=== PATIENT | female | born 1940 | race Caucasian/White ===

== ENCOUNTER 2017-01-22 06:10 | Emergency (ER) | payer OTHER ==
--- NOTE | 2017-01-22 06:36 | PROVIDER DOCUMENTATION ---
HPI-Syncope/Dizziness - General Chief Complaint: Syncope Stated Complaint: fall, neck pain, right hip pain, arm pain Time Seen by Provider: 01/22/17 06:28 Source: patient, family Allergies/Adverse Reactions: Patient Allergies Allergy/AdvReac Type Severity Reaction Status Date / Time ceftazidime pentahydrate * AdvReac DIZZINESS Verified 01/22/17 06:31 [From Tazidime] tramadol AdvReac DIZZINESS Verified 01/22/17 06:31 trazodone AdvReac DIZZINESS Verified 01/22/17 06:31 Home Medications: Home Medication List Medication Instructions Recorded Confirmed Last Taken Type Levothyroxine [Synthroid] 88 mcg PO DAILY 02/04/15 01/22/17 01/21/17 History Albuterol Sulfate [Proair Hfa] 1 puff IH Q6H PRN PRN 12/22/16 01/22/17 12/19/16 21:00 History Cholecalciferol (Vit D3) [Vitamin 5,000 unit PO DAILY 12/22/16 01/22/17 History D] Cyanocobalamin (Vitamin B-12) 1,000 mcg PO DAILY 12/22/16 01/22/17 01/21/17 History [Vitamin B-12] Duloxetine [Cymbalta] 60 mg PO DAILY 12/22/16 01/22/17 01/21/17 History Furosemide [Lasix] 20 mg PO EVERY OTHER DAY 12/22/16 01/22/17 01/21/17 History Gabapentin 300 mg PO HS 12/22/16 01/22/17 01/21/17 History Hydrochlorothiazide 12.5 mg PO DAILY 12/22/16 01/22/17 01/21/17 History LISINOpril [Prinivil] 20 mg PO DAILY 12/22/16 01/22/17 01/21/17 History Magnesium Oxide 400 mg PO DAILY 12/22/16 01/22/17 01/21/17 History Mometasone Nasal Colp [Nasonex 1 spray JOSE M DAILY 12/22/16 01/22/17 01/21/17 History Nasal Colp] Omeprazole [Prilosec] 40 mg PO DAILY 12/22/16 01/22/17 01/21/17 History Orphenadrine [Norflex] 100 mg PO BID 12/22/16 01/22/17 01/21/17 History Polyethylene Glycol 3350 [Clearlax] 17 gm PO DAILY 12/22/16 01/22/17 01/21/17 History Potassium Chloride 20 meq PO DAILY 12/22/16 01/22/17 01/21/17 History Pramipexole [Mirapex] 0.25 mg PO HS 12/22/16 01/22/17 01/21/17 History Simvastatin [Zocor] 20 mg PO DAILY 12/22/16 01/22/17 01/21/17 History Acetaminophen [Tylenol] 1,000 mg PO Q6H #0 tablet 12/29/16 01/22/17 Unknown Rx Celecoxib [Celebrex] 200 mg PO BID #60 capsule 12/29/16 01/22/17 01/21/17 Rx Docusate Sodium [Colace] 100 mg PO BID #0 capsule 12/29/16 01/22/17 01/21/17 Rx Magnesium Hydroxide [Milk of 30 ml PO Q6H PRN PRN #0 udc 12/29/16 01/22/17 Unknown Rx Magnesia] Pregabalin [Lyrica] 75 mg PO BID #60 capsule 12/29/16 01/22/17 01/21/17 Rx Rivaroxaban [Xarelto] 10 mg PO DAILY@0600 #30 tablet 12/29/16 01/22/17 01/21/17 Rx Folic Acid 0.4 mg PO DAILY 01/22/17 01/22/17 01/21/17 History Furosemide [Lasix] 40 mg .SEE ORDER DAILY #14 vial 01/22/17 Unknown Rx Hydrocodone Bit/Acetaminophen 1 each PO HS 01/22/17 01/22/17 01/21/17 History [Hydrocodon-Acetaminophen 5-325] Iron Carbonyl/Ascorbic Acid 1 each PO DAILY 01/22/17 01/22/17 01/21/17 History [Icar-C] Melatonin/Pyridoxine [Melatonin 3 1 each PO HS 01/22/17 01/22/17 01/21/17 History mg Tablet] Sodium Polystyrene [Sps] 30 gm MD 3-4XDAY PRN PRN #40 enema 01/22/17 Unknown Rx - History of Present Illness-Syncope/Dizzy Nature of Presenting Problem: Pt is in rehab and had a fall. There was no loss of consciousness, but she feels dizzy-headed but is unable to articulate if this is vertigo or light- headedness. She has a vague chest wall muscle pain and right elbow pain where whe sustained an abrasion, vague neck muscle ache, but FROM and her usual right him discomfort from where she recently had a hip operation. Recently she has been haveing more trouble in rehab Review of Systems - Adult - REVIEW OF SYSTEMS - ADULT Constitutional: denies: chills, fever Eyes: denies: discharge, blurred vision Ears, Nose, Mouth & Throat: denies: ear pain, sinus problem, throat pain Cardiovascular: denies: chest pain, heart murmur Respiratory: denies: chronic cough, shortness of breath Gastrointestinal: denies: abdominal pain, difficulty swallowing Genitourinary: denies: frequency, hematuria Musculoskeletal: denies: bone pain, joint pain, neck pain Integumentary: denies: hives, itching, skin thickening Neurological: denies: dizziness/vertigo, numbness, tremors Psychiatric: reports: no symptoms reported Endocrine: denies: goiter, cold intolerance, heat intolerance Hematologic/Lymphatic: denies: low blood count, lymphedema Allergic/Immunologic: denies: eczema, frequent infections, hives Past History - Adult - PAST MEDICAL HISTORY-ADULT Review of Records: reports: Nursing Assessment Review, Medications Reviewed Cardiovascular: reports: HTN, hyperlipidemia Genitourinary: reports: kidney disease Musculoskeletal: reports: chronic pain, neck/back injury (L1 compression fracture) Endocrine/Immune: reports: thyroid disorder - PRIOR SURGERIES/PROCEDURES Surgical/Procedure History: reports: cholecystectomy, back/neck, other (right hip) - IMMUNIZATION STATUS Childhood Immunizations: See Nurse Assessment Flu Vaccine: See Nurse Assessment Physical Exam-General - CONSTITUTIONAL General Appearance: appears well, alert, no apparent distress - EYES Eyes: PERRL/EOMI, pink conjunctivae - HEAD, EARS, NOSE, MOUTH & THROAT HENMT: normocephalic/atraumatic, moist mucous membranes, normal ENT inspection, TMs normal - NECK Neck: non-tender, full range of motion, supple, normal inspection. negative: C- spine tenderness - RESPIRATORY Respiratory: chest non-tender, lungs clear, normal breath sounds, no pleuratic chest pain, no respiratory distress, no accessory muscle use - CARDIOVASCULAR Cardiovascular: normal peripheral pulses, regular rate, rhythm, no edema, no gallop, no JVD, no murmur - CHEST (BREASTS) Chest/Breast: tenderness, other (it is chest wall muscle tenderness) - GASTROINTESTINAL (ABDOMEN) Abdominal Exam: normal bowel sounds, non tender, soft, no organomegaly, no pulsatile mass - LYMPHATIC Lymphatic: no adenopathy - MUSCULOSKELETAL Back Exam: normal inspection, no CVA tenderness, no vertebral tenderness Extremity: normal range of motion - SKIN Integumentary: normal color, normal turgor, warm/dry, abrasion(s) - NEUROLOGIC Neurologic: inoculator II-XII nml as tested, grossly normal, no motor/sensory deficits - PSYCHIATRIC Psych/Mental Status: normal mood/affect, normal thought content, normal thought process, oriented x 3 Progress - PLAN OF CARE/RESULTS Progress/Plan/Lab Results: low probablitiy v/q scan Hyperkalemia/ renal insufficiency Laboratory Tests 01/22/17 01/22/17 01/22/17 05:36 06:35 06:35 WBC 8.94 RBC 3.55 L Hgb 10.5 L Hct 33.1 L MCV 93.2 MCH 29.6 MCHC 31.7 L RDW Std Deviation 15.5 H Plt Count 417 H MPV 9.5 Immature Gran % (Auto) 0.3 Neut % (Auto) 51.9 Lymph % (Auto) 27.4 [place] % (Auto) 17.1 H Eos % (Auto) 2.6 Baso % (Auto) 0.7 Immature Gran # (Auto) 0.03 Neut # (Auto) 4.64 Lymph # (Auto) 2.45 [place] # (Auto) 1.53 H Eos # (Auto) 0.23 Baso # (Auto) 0.06 D-Dimer 6.44 H Sodium Potassium Chloride Carbon Dioxide Anion Gap BUN Creatinine Estimated GFR/1.73 m2 BUN/Creatinine Ratio Glucose POC Glucose 104 Calculated Osmolality Calcium Total Bilirubin AST ALT Alkaline Phosphatase Ztv-F-Xugxnxtdatp Pept Total Protein Albumin Globulin Albumin/Globulin Ratio Urine Source Urine Color Urine Turbidity Urine pH Ur Specific [place] Urine Protein Ur Glucose (Stick) Ur Ketones (Stick) Urine Blood Urine Nitrite Urine Bilirubin Urobilinogen Dipstick Urine Leukocytes Urine WBC (Auto) Urine RBC (Auto) U Epithel Cells (Auto) Urine Bacteria (Auto) 01/22/17 01/22/17 01/22/17 06:35 09:05 09:38 WBC RBC Hgb Hct MCV MCH MCHC RDW Std Deviation Plt Count MPV Immature Gran % (Auto) Neut % (Auto) Lymph % (Auto) [place] % (Auto) Eos % (Auto) Baso % (Auto) Immature Gran # (Auto) Neut # (Auto) Lymph # (Auto) [place] # (Auto) Eos # (Auto) Baso # (Auto) D-Dimer Sodium 128 L Potassium 6.4 H* Chloride 93 L Carbon Dioxide 22 L Anion Gap 13 BUN 40 H Creatinine 1.5 H Estimated GFR/1.73 m2 34 BUN/Creatinine Ratio 27 Glucose 88 POC Glucose Calculated Osmolality 266 Calcium 9.5 Total Bilirubin 0.26 AST 26 ALT 16 Alkaline Phosphatase 108 H Sal-J-Ilsknbnuoyx Pept 141 Total Protein 7.3 Albumin 4.1 Globulin 3.2 Albumin/Globulin Ratio 1.3 Urine Source CLEAN CATCH Urine Color YELLOW Urine Turbidity CLEAR Urine pH 5.5 Ur Specific [place] 1.020 Urine Protein NEGATIVE Ur Glucose (Stick) NEGATIVE Ur Ketones (Stick) NEGATIVE Urine Blood NEGATIVE Urine Nitrite NEGATIVE Urine Bilirubin NEGATIVE Urobilinogen Dipstick NORMAL Urine Leukocytes NEGATIVE Urine WBC (Auto) <10 Urine RBC (Auto) <10 U Epithel Cells (Auto) <10 Urine Bacteria (Auto) NEGATIVE 01/22/17 01/22/17 09:38 13:39 WBC RBC Hgb Hct MCV MCH MCHC RDW Std Deviation Plt Count MPV Immature Gran % (Auto) Neut % (Auto) Lymph % (Auto) [place] % (Auto) Eos % (Auto) Baso % (Auto) Immature Gran # (Auto) Neut # (Auto) Lymph # (Auto) [place] # (Auto) Eos # (Auto) Baso # (Auto) D-Dimer Sodium 126 L 129 L Potassium 6.3 H* 6.2 H* Chloride 93 L 96 L Carbon Dioxide 23 L 22 L Anion Gap 10 11 BUN 38 H 36 H Creatinine 1.4 H 1.4 H Estimated GFR/1.73 m2 37 37 BUN/Creatinine Ratio 27 26 Glucose 86 100 POC Glucose Calculated Osmolality 262 267 Calcium 9.3 9.1 Total Bilirubin AST ALT Alkaline Phosphatase Awn-E-Tzkaikryyeo Pept Total Protein Albumin Globulin Albumin/Globulin Ratio Urine Source Urine Color Urine Turbidity Urine pH Ur Specific [place] Urine Protein Ur Glucose (Stick) Ur Ketones (Stick) Urine Blood Urine Nitrite Urine Bilirubin Urobilinogen Dipstick Urine Leukocytes Urine WBC (Auto) Urine RBC (Auto) U Epithel Cells (Auto) Urine Bacteria (Auto) Orders Category Date Time Status [facility] Cath Insertion ORDERED Care 01/22/17 11:01 Active HEAD W/O CONTRAST [CT] Stat Exams 01/22/17 07:09 Completed LUNG SCAN / VQ [NM] Stat Exams 01/22/17 07:45 Draft XRAY HIP UNILATERAL RT [RAD] Stat Exams 01/22/17 06:34 Completed cxr [CHEST-2 VIEWS] [RAD] Stat Exams 01/22/17 06:34 Completed BMP [BASIC METABOLIC PANEL] [CHEM] Stat Lab 01/22/17 09:38 Completed BMP [BASIC METABOLIC PANEL] [CHEM] Stat Lab 01/22/17 13:39 Completed BNP [PRO B-NATRIURETIC PEPTIDE] Stat Lab 01/22/17 09:38 Completed CBC WITH ELECTRONIC DIFF [HEME] Stat Lab 01/22/17 06:35 Completed CMP [COMPREHENSIVE METABOLIC PANEL] [CHEM] Stat Lab 01/22/17 06:35 Completed Ddimer [D-DIMER] [CHEM] Stat Lab 01/22/17 06:35 Completed UA NIMS W/REFLEX CULT [URINALYSIS] Stat Lab 01/22/17 09:05 Completed 0.9% Sodium Chloride Inj [Ns] 1,000 ml Med 01/22/17 11:00 Discontinued IV 999 mls/hr Furosemide [Lasix] Med 01/22/17 11:01 Discontinued 40 mg IV NOW ONE Patiromer [Veltassa] Med 01/22/17 13:29 Discontinued 8.4 gm PO ONCE ONE Sodium Polystyrene [Kayexalate] Med 01/22/17 12:48 Discontinued 30 gm PO NOW ONE EKG [EKG] Stat Ther 01/22/17 06:14 Ordered Venous U/S Bilateral Legs [CV] Stat Ther 01/22/17 07:46 Completed Vital Signs Temp Pulse Pulse Pulse Resp BP BP 01/22/17 11:41 89 20 127/52 01/22/17 08:10 94 H 18 124/56 01/22/17 07:40 93 H 95 H 146/68 01/22/17 06:11 97.9 F 93 H 14 150/73 BP Pulse Ox 01/22/17 11:41 01/22/17 08:10 97 01/22/17 07:40 142/92 01/22/17 06:11 94 L ceftazidime pentahydrate * [From Tazidime] Adverse Reaction (Verified 01/22/17 06:31) DIZZINESS tramadol Adverse Reaction (Verified 01/22/17 06:31) DIZZINESS causes blurred vision trazodone Adverse Reaction (Verified 01/22/17 06:31) DIZZINESS Levothyroxine [Synthroid] 88 mcg PO DAILY 02/04/15 Albuterol Sulfate [Proair Hfa] 1 puff IH Q6H PRN PRN 12/22/16 Cholecalciferol (Vit D3) [Vitamin D] 5,000 unit PO DAILY 12/22/16 Cyanocobalamin (Vitamin B-12) [Vitamin B-12] 1,000 mcg PO DAILY 12/22/16 Duloxetine [Cymbalta] 60 mg PO DAILY 12/22/16 Furosemide [Lasix] 20 mg PO EVERY OTHER DAY 12/22/16 Gabapentin 300 mg PO HS 12/22/16 Hydrochlorothiazide 12.5 mg PO DAILY 12/22/16 LISINOpril [Prinivil] 20 mg PO DAILY 12/22/16 Magnesium Oxide 400 mg PO DAILY 12/22/16 Mometasone Nasal Colp [Nasonex Nasal Colp] 1 spray JOSE M DAILY 12/22/16 Omeprazole [Prilosec] 40 mg PO DAILY 12/22/16 Orphenadrine [Norflex] 100 mg PO BID 12/22/16 Polyethylene Glycol 3350 [Clearlax] 17 gm PO DAILY 12/22/16 Potassium Chloride 20 meq PO DAILY 12/22/16 Pramipexole [Mirapex] 0.25 mg PO HS 12/22/16 Simvastatin [Zocor] 20 mg PO DAILY 12/22/16 Acetaminophen [Tylenol] 1,000 mg PO Q6H #0 tablet 12/29/16 Celecoxib [Celebrex] 200 mg PO BID #60 capsule 12/29/16 Docusate Sodium [Colace] 100 mg PO BID #0 capsule 12/29/16 Magnesium Hydroxide [Milk of Magnesia] 30 ml PO Q6H PRN PRN #0 udc 12/29/16 Pregabalin [Lyrica] 75 mg PO BID #60 capsule 12/29/16 Rivaroxaban [Xarelto] 10 mg PO DAILY@0600 #30 tablet 12/29/16 Folic Acid 0.4 mg PO DAILY 01/22/17 Hydrocodone Bit/Acetaminophen [Hydrocodon-Acetaminophen 5-325] 1 each PO HS 10/29 Iron Carbonyl/Ascorbic Acid [Icar-C] 1 each PO DAILY 01/22/17 Melatonin/Pyridoxine [Melatonin 3 mg Tablet] 1 each PO HS 01/22/17 I&O 01/21/17 01/22/17 01/23/17 05:59 06:59 06:59 Output Total 500 Balance -500 Laboratory 01/22/17 01/22/17 01/22/17 13:39 09:38 09:38 WBC RBC Hgb Hct MCV MCH MCHC RDW Std Deviation Plt Count MPV Immature Gran % (Auto) Neut % (Auto) Lymph % (Auto) [place] % (Auto) Eos % (Auto) Baso % (Auto) Immature Gran # (Auto) Neut # (Auto) Lymph # (Auto) [place] # (Auto) Eos # (Auto) Baso # (Auto) D-Dimer Sodium 129 L 126 L Potassium 6.2 H* 6.3 H* Chloride 96 L 93 L Carbon Dioxide 22 L 23 L Anion Gap 11 10 BUN 36 H 38 H Creatinine 1.4 H 1.4 H Estimated GFR/1.73 m2 37 37 BUN/Creatinine Ratio 26 27 Glucose 100 86 POC Glucose Calculated Osmolality 267 262 Calcium 9.1 9.3 Total Bilirubin AST ALT Alkaline Phosphatase Fqr-Y-Xaateggmgqn Pept 141 Total Protein Albumin Globulin Albumin/Globulin Ratio Urine Source Urine Color Urine Turbidity Urine pH Ur Specific [place] Urine Protein Ur Glucose (Stick) Ur Ketones (Stick) Urine Blood Urine Nitrite Urine Bilirubin Urobilinogen Dipstick Urine Leukocytes Urine WBC (Auto) Urine RBC (Auto) U Epithel Cells (Auto) Urine Bacteria (Auto) 01/22/17 01/22/17 01/22/17 09:05 06:35 06:35 WBC RBC Hgb Hct MCV MCH MCHC RDW Std Deviation Plt Count MPV Immature Gran % (Auto) Neut % (Auto) Lymph % (Auto) [place] % (Auto) Eos % (Auto) Baso % (Auto) Immature Gran # (Auto) Neut # (Auto) Lymph # (Auto) [place] # (Auto) Eos # (Auto) Baso # (Auto) D-Dimer 6.44 H Sodium 128 L Potassium 6.4 H* Chloride 93 L Carbon Dioxide 22 L Anion Gap 13 BUN 40 H Creatinine 1.5 H Estimated GFR/1.73 m2 34 BUN/Creatinine Ratio 27 Glucose 88 POC Glucose Calculated Osmolality 266 Calcium 9.5 Total Bilirubin 0.26 AST 26 ALT 16 Alkaline Phosphatase 108 H Zbb-K-Ezyboxoevki Pept Total Protein 7.3 Albumin 4.1 Globulin 3.2 Albumin/Globulin Ratio 1.3 Urine Source CLEAN CATCH Urine Color YELLOW Urine Turbidity CLEAR Urine pH 5.5 Ur Specific [place] 1.020 Urine Protein NEGATIVE Ur Glucose (Stick) NEGATIVE Ur Ketones (Stick) NEGATIVE Urine Blood NEGATIVE Urine Nitrite NEGATIVE Urine Bilirubin NEGATIVE Urobilinogen Dipstick NORMAL Urine Leukocytes NEGATIVE Urine WBC (Auto) <10 Urine RBC (Auto) <10 U Epithel Cells (Auto) <10 Urine Bacteria (Auto) NEGATIVE 01/22/17 01/22/17 06:35 05:36 WBC 8.94 RBC 3.55 L Hgb 10.5 L Hct 33.1 L MCV 93.2 MCH 29.6 MCHC 31.7 L RDW Std Deviation 15.5 H Plt Count 417 H MPV 9.5 Immature Gran % (Auto) 0.3 Neut % (Auto) 51.9 Lymph % (Auto) 27.4 [place] % (Auto) 17.1 H Eos % (Auto) 2.6 Baso % (Auto) 0.7 Immature Gran # (Auto) 0.03 Neut # (Auto) 4.64 Lymph # (Auto) 2.45 [place] # (Auto) 1.53 H Eos # (Auto) 0.23 Baso # (Auto) 0.06 D-Dimer Sodium Potassium Chloride Carbon Dioxide Anion Gap BUN Creatinine Estimated GFR/1.73 m2 BUN/Creatinine Ratio Glucose POC Glucose 104 Calculated Osmolality Calcium Total Bilirubin AST ALT Alkaline Phosphatase Fwb-Z-Efryyjsbmyj Pept Total Protein Albumin Globulin Albumin/Globulin Ratio Urine Source Urine Color Urine Turbidity Urine pH Ur Specific [place] Urine Protein Ur Glucose (Stick) Ur Ketones (Stick) Urine Blood Urine Nitrite Urine Bilirubin Urobilinogen Dipstick Urine Leukocytes Urine WBC (Auto) Urine RBC (Auto) U Epithel Cells (Auto) Urine Bacteria (Auto) Departure - Departure Time of Disposition Order: 14:22 DIAGNOSIS: Renal insufficiency, mild, Drug-induced hyperkalemia Disposition: HOME 01 Certified Medical Emergency: Emergent Condition: Stable Additional Instructions: told them to stop potassium, increase the lasix to 40 mg daily and start kayexalate TID until K is normal ED Follow Up Instructions: You have been treated by a care provider in the Emergency Department. These instructions are being provided to you so you can have an understanding of how to care for yourself upon discharge. Upon discharge from the Emergency Department, you are responsible for making arrangements for follow-up care by a physician of your choice. Take all prescribed medications as directed. Return to the Emergency Department immediately for any new or worsening symptoms. You may call the Physician Referral phone number at [phone] to obtain a list of Physicians who are taking new patients. Prescriptions: Sodium Polystyrene [Sps] 30 gm MD 3-4XDAY PRN PRN #40 enema PRN Reason: hyperkalemia Furosemide [Lasix] 40 mg .SEE ORDER DAILY #14 vial
[2017-01-22 06:58] LABS: MANUAL DIFF NEEDED? NO
[2017-01-22 06:59] LABS: BASO% 0.7 % (0.0-0.8); EOS# 0.23 X1000 (0.0-0.7); EOS% 2.6 % (0.0-10.0); HEMATOCRIT 33.1 % (37.0-47.0); HEMOGLOBIN 10.5 g/dL (12.0-16.0); IMM GRAN# 0.03 X1000 (0.0-0.04); IMM GRAN% 0.3 % (0.0-0.5); LYMPH# 2.45 X1000 (1.2-3.4); LYMPH% 27.4 % (20.5-51.1); MCH 29.6 PG (27-31); MCHC 31.7 g/dL (33-37); MCV 93.2 FL (81-99); MONO# 1.53 X1000 (0.11-0.59); MONO% 17.1 % (1.7-9.3); MPV 9.5 FL (7.4-10.4); NEUT% 51.9 % (42.2-75.2); PLT 417 X1000 (130-400); RBC 3.55 XMIL (4.2-5.4)
[2017-01-22 07:37] LABS: ALBUMIN 4.1 g/dL (3.5-5.0); CALCIUM 9.5 mg/dL (8.8-10.2); TOTAL BILIRUBIN 0.26 mg/dL (0.20-1.00); TOTAL PROTEIN 7.3 g/dL (6.3-8.3)
[2017-01-22 07:45] LABS: POTASSIUM 6.4 mmol/L (3.5-5.1)
--- NOTE | 2017-01-22 07:54 | Diag Imaging Result Document ---
PROCEDURE NAME: CHEST-2 VIEWS - 01/22/2017 FRONTAL AND LATERAL CHEST, TWO VIEWS: COMPARISON: Compared to 12/27/2016. FINDINGS: The lungs are well expanded. There are no contusions or pneumothoraces. The vessels are small. No consolidation. Cement is found within a mid thoracic vertebra. Just superior to this is a thoracic vertebra with mild compression. This is unchanged from 12/04/2015. Granuloma is found in the left base. No effusions. IMPRESSION: No acute abnormality.
--- NOTE | 2017-01-22 07:56 | Diag Imaging Result Document ---
PROCEDURE NAME: HEAD W/O CONTRAST - 01/22/2017 CT BRAIN WITHOUT CONTRAST: COMPARISON: Compared to 04/22/2015. FINDINGS: No parenchymal hemorrhage. No epidural or subdural hematoma. No subarachnoid hemorrhage. No skull fracture. There is atrophy. No hydrocephalus. Mild microvascular ischemic changes. There is mucosal thickening in the right maxillary sinus. IMPRESSION: 1. No hemorrhage. No injury. 2. Atrophy with mild microvascular ischemic changes. 3. Mild right maxillary sinusitis. 4. Stable dense calcification adjacent to the left sly which could represent a meningioma. A preliminary report was given at 7:33 a.m. MTDD
--- NOTE | 2017-01-22 08:25 | Diag Imaging Result Document ---
PROCEDURE NAME: XRAY HIP UNILATERAL RT - 01/22/2017 RIGHT HIP TWO VIEWS: FINDINGS: There has been orthopedic replacement of the right hip. The femoral head component is well positioned in the acetabular component. There is good positioning in the upper femoral shaft. There is a fracture to the greater trochanter. This does not appear to be acute on the oblique view. No other fracture. 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
[2017-01-22 09:33] LABS: URINE CULTURE NEEDED? NO; URINE MICRO REVIEW NEEDED? NO; URINE SOURCE CLEAN CATCH
[2017-01-22 09:45] LABS: BILIRUBIN URINE NEGATIVE (NEGATIVE); BLOOD URINE NEGATIVE (NEGATIVE); COLOR YELLOW; GLUCOSE URINE NEGATIVE (NEGATIVE); LEUKOCYTES URINE NEGATIVE (NEGATIVE); NITRITE URINE NEGATIVE (NEGATIVE); PH URINE 5.5; PROTEIN URINE NEGATIVE (NEGATIVE); TURBIDITY URINE CLEAR (CLEAR); UR EPITHELIAL CELLS <10 /HPF (<10); URINE BACTERIA NEGATIVE /HPF; URINE RBC <10 /HPF (<10); URINE WBC <10 /HPF (<10); UROBILINOGEN URINE NORMAL (NORMAL)
--- NOTE | 2017-01-22 10:26 | ED EKG INTERP ---
EKG Interpretation - EKG Time of EKG reading by physician:: 06:15 EKG Read and Signed by:: Adan Lambert EKG Interpretation (*Must complete 3 of following elements*): Abnormal Rate: 95 (possible lateral infarct; inferior infarct) Rhythm: NSR Attestation - Scribe Verification/Attestation Scribe:: Heaven Mcmahon Acting as Scribe for:: Adan Lambert Scribe documention review:: This chart was documented by a scribe and accurately reflects the service the provider performed and the decisions made by the provider.
[2017-01-22 10:37] LABS: CALCIUM 9.3 mg/dL (8.8-10.2)
[2017-01-22 10:57] LABS: POTASSIUM 6.3 mmol/L (3.5-5.1)
[2017-01-22] MEDS ORDERED: NS 1,000 ML IV ONE (11:00)
[2017-01-22] MEDS ORDERED: LASIX IV ONE (11:01)
[2017-01-22] MEDS ORDERED: KAYEXALATE PO ONE (12:48)
--- NOTE | 2017-01-22 12:51 | Diag Imaging Result Document ---
PROCEDURE NAME: LUNG SCAN / VQ - 01/22/2017 NUCLEAR MEDICINE VENTILATION/PERFUSION LUNG SCAN: FINDINGS: A dose of 36.1 mCi of DTPA used for the ventilation images. A 5.7 mCi MAA given IV for the perfusion images. There are no wedged shaped perfusion defects. No ventilation/perfusion mismatches. Correlation made with a plain film taken earlier. IMPRESSION: No evidence of a pulmonary embolus. A preliminary report was given at 12:12 PM.
[2017-01-22] MEDS ORDERED: VELTASSA PO ONE (13:29)
[2017-01-22 14:09] LABS: CALCIUM 9.1 mg/dL (8.8-10.2)
[2017-01-22 14:10] LABS: POTASSIUM 6.2 mmol/L (3.5-5.1)
[2017-01-22 15:32] VITALS: BP 132/58
--- NOTE | 2017-01-23 09:37 | EKG Report ---
Test Performed on : 01/22/2017 05:15:46 AM Test Reason : fall Blood Pressure : / mmHG Vent. Rate : 095 BPM Atrial Rate : 095 BPM P-R Int : 136 ms QRS Dur : 074 ms QT Int : 352 ms P-R-T Axes : 032 027 007 degrees QTc Int : 442 ms Normal sinus rhythm. Possible Lateral infarct , age undetermined Inferior infarct , age undetermined Abnormal ECG When compared with ECG of 22-DEC-2016 09:32, Nonspecific T wave abnormality now evident in Inferior leads Unconfirmed Result
== END 2017-01-22 15:31 | disposition home or self-care (01) ==
LOC: EDUNIT# → EDBD → ED 06:10 → SUPCPDRO 06:10 → ED 15:31
DX: E87.5 Hyperkalemia (principal); T50.905A Adverse effect of unspecified drugs, medicaments and biological substances, initial encounter; N28.9 Disorder of kidney and ureter, unspecified; R42 Dizziness and giddiness; M25.521 Pain in right elbow; S50.311A Abrasion of right elbow, initial encounter; M54.2 Cervicalgia; I10 Essential (primary) hypertension; Z79.899 Other long term (current) drug therapy; W19.XXXA Unspecified fall, initial encounter; E78.5 Hyperlipidemia, unspecified; G89.29 Other chronic pain; E07.9 Disorder of thyroid, unspecified; Z79.01 Long term (current) use of anticoagulants; Z79.51 Long term (current) use of inhaled steroids
CPT/HCPCS: 70450; 71020; 78582; 80048; 80053; 81001; 82948; 83880; 85025; 85379; 93005; 93970; A9539; A9540; J1940; J7030